=== PATIENT | male | born 1980 | race Hispanic/Latino ===

== ENCOUNTER 2021-07-13 23:20 | Emergency (ER) | payer SELFPAY ==
[2021-07-13 23:32] VITALS: BP 135/81; PULSE 67; RESP 15; TEMP 37; O2SAT 98
--- NOTE | 2021-07-13 23:45 | ED_ITS ---
HPI - Animal Bite General Chief Complaint: Animal Bite Stated Complaint: dog bite left arm Time Seen by Provider: 07/13/21 23:45 Source: patient Mode of arrival: Ambulatory Limitations: no limitations History of Present Illness HPI narrative: This is a 40-year-old male who has a dog bite to his left forearm. Patient states it is his dogs. They were fighting over a dog toy he went to break them up the 1st on his arm. Patient states that they are up-to-date with her vaccinations. Patient has pain over the forearm and radiating down words. He does not any numbness, tingling or weakness. He has got full range of motion of his fingers and hands. Patient is unsure of his tetanus status. He denies other injuries. He denies any medical issues otherwise. He does not take any medications daily. He denies any major surgeries. Known drug allergies. He does live on [facility] so this happened earlier in the day [place]. Related Data Previous Rx's Medication Instructions Recorded amoxicillin 875 mg-potassium 1 tab PO BID #20 tab 07/14/21 clavulanate 125 mg tablet (Augmentin) Allergies Allergy/AdvReac Type Severity Reaction Status Date / Time No Known Drug Allergies Allergy Verified 07/14/21 00:17 Review of Systems Review of Systems ROS Unobtainable: All systems reviewed & are unremarkable except as noted in HPI and below Patient History Social History Smoking Status: Never smoker Smoking Status: Never smoker Substance Use Type: does not use Exam Narrative Exam Narrative: GENERAL: Alert and oriented x three, male in mild distress. HEENT: Head normocephalic, atraumatic, EOMI, pupils reactive, face symmetric, moist mucous membranes NECK: Supple, full range of motion EXTREMITIES: Normal range of motion, no clubbing or edema. Neurovascularly intact. Patient has a puncture wound of his left forearm that is a 0.5 cm in length and gapped into the subcutaneous tissue. He also has a laceration that is 1.5cm on the underside of his forearm of the left arm. Patient has full range of motion of his arm including at the wrist with flexion extension, supination pronation, ADD and abduct deutsch of his fingers as well as flexion- extension of the fingers. He does not have any bony tenderness. On not able to visualize any tendon or muscle involvement. NEUROLOGICAL: Cranial nerves II through XII grossly intact. Moving all extremities SKIN: Warm, dry, no petechiae, no rashes or lesions otherwise noted. Initial Vital Signs Initial Vital Signs: Vital Signs Temperature 98.6 F 07/13/21 23:32 Pulse Rate 67 07/13/21 23:32 Respiratory Rate 15 07/13/21 23:32 Blood Pressure 135/81 07/13/21 23:32 Pulse Oximetry 98 07/13/21 23:32 Procedures Laceration Repair Laceration 1: Time of procedure: 01:03 Site: upper extremity Side (If applicable): left Size (cm): 1.5 Description: linear and clean Depth: simple, single layer Local Anesthetic: lidocaine 1% Amount of anesthesia used (mL): 4 Pre-repair: wound explored, irrigated extensively and deep structures intact Skin layer closed with: nylon Size (cm): 4-0 Number of sutures: 3 Technique: simple, interrupted Course Orders Ordered: ED Orders 07/13/21 23:50 XR forearm LT 2V Stat Discontinued Medications Amoxicillin/Clavulanate Potassium (Amoxicillin/Clav 875/125 Mg) 1 tab PO NOW ONE Stop: 07/13/21 23:51 Last Admin: 07/13/21 23:57 Dose: 1 tab Documented by: DENYS Diphtheria/Tetanus/Acell Pertussis (Tet,Diph,Pertuss(Acell),Vac/Pf 0.5 Ml Syringe) 0.5 ml IM .ONCE ONE Stop: 07/13/21 23:51 Last Admin: 07/13/21 23:57 Dose: 0.5 ml Documented by: DENYS Ibuprofen (Ibuprofen 400 Mg Tablet) 800 mg PO NOW ONE Stop: 07/13/21 23:51 Last Admin: 07/13/21 23:57 Dose: 800 mg Documented by: DENYS Lidocaine/Sodium Bicarbonate (Lido 1%/Sod Bicarb 8.4% (10ml) 10 Ml Syringe) 10 ml INJ NOW ONE Stop: 07/13/21 23:51 Last Admin: 07/13/21 23:58 Dose: 10 ml Documented by: DENYS Vital Signs Vital signs: Vital Signs - 8 hr 07/13/21 23:32 Temperature 98.6 F Pulse Rate 67 Respiratory Rate 15 Blood Pressure 135/81 Pulse Oximetry 98 [facility] - Animal Bite Imaging Data Extremity x-ray #1: My Impression: no fx, no FB. [facility] Narrative Medical decision making narrative: This is a 40-year-old male who comes with dog bite. Dogs are his animals, patient was breaking up a fight over a dog toy a when his dog clamp down on his forearm. He has a puncture wound a laceration over the forearm on the palmar side of his left arm. The laceration is deep and large enough that I did irrigated and close it loosely with 3 sutures and patient was started on oral antibiotics. Puncture wound was left open to drain. Return precautions were discussed. Patient began developing some bruising over the area while here in the department. x-ray does not show any foreign body or fracture. Discharge Plan Departure Patient Disposition: Home Clinical Impression: Dog bite of forearm Instructions: DI for Dog Bite Activity Restrictions/Additional Instructions: Follow-up in the next 7 days for removal of your sutures. Take antibiotics until completely gone. Prescription sent to [facility] on [facility]. Wound Care: Keep wound(s) clean and dry. Wash daily with soap and water only. Do not use over the counter products (alcohol or peroxide)on the wounds unless instructed by a physician. If wound condition worsens (increased/expanding redness, developing fluid blisters, or worsening pain), either contact your doctor for an urgent re- assessment , or return to the Emergency Department. Return to the Emergency Department for any new or worsening symptoms. Return to the ED, urgent care, or vist a primary care doctor for removal or suture or zeke in 7-10 days. Return if fever greater than 100.4 Fahrenheit, increased swelling, increasing pain or worsening symptoms such as increased discharge or spreading redness. Use warm compresses 3 times daily for 20 minutes to the affected area. If there is packing in place do not pull it out, if it falls out do not try to replace it. Prescriptions: New amoxicillin-pot clavulanate [Augmentin] 875-125 mg tablet 1 tab PO BID Qty: 20 0RF
--- NOTE | 2021-07-13 23:50 | DI.RAD.S_ITS ---
PROCEDURE: XR FOREARM LT 2V INDICATIONS: dogbite TECHNIQUE: 2 views of the forearm were acquired. COMPARISON: None. FINDINGS: Bones: No fractures or dislocations. No suspicious bony lesions. Soft tissues: Small soft tissue lacerations over the lateral and ventral aspect of the forearm. No underlying foreign body. No suspicious soft tissue calcifications or masses. IMPRESSION: 1. No visible fractures. 2. Soft tissue injury without indwelling foreign body. Dictated by: Tamia Quiñonez M.D. on 07/14/2021 at 1:52 Approved by: Tamia Quiñonez M.D. on 07/14/2021 at 1:53
[2021-07-13] MEDS: AMOXICILLIN/CLAV 875/125 MG 1 TAB PO (23:57)
[2021-07-13] MEDS: TET,DIPH,PERTUSS(ACELL),VAC/PF 0.5 ML SYRINGE IM (23:57)
[2021-07-13] MEDS: IBUPROFEN 400 MG TABLET 800 MG PO (23:57)
[2021-07-13] MEDS: LIDO 1%/SOD BICARB 8.4% (10ML) 10 ML SYRINGE INJ (23:58)
== END 2021-07-14 01:25 | disposition home or self-care (01) ==
PROVIDERS: Emergency Provider Emergency Medicine
DX: S51.812A Laceration without foreign body of left forearm, initial encounter (principal); Z23 Encounter for immunization; W54.0XXA Bitten by dog, initial encounter; Y93.89 Activity, other specified
CPT/HCPCS: 12001; 73090; 90471; 99283; 99284; 90715